=== PATIENT | female | born 1930 | race Asian ===

== ENCOUNTER 2017-05-07 15:49 | Emergency (ER) | payer MEDICARE, OTHER ==
[~2017-05-07] VITALS: Ht 149.9 cm; Wt 48.0 kg
[2017-05-07] MEDS ORDERED: LISI-660 PO (15:56)
[2017-05-07] MEDS ORDERED: SIMV-259 PO (15:56)
[2017-05-07] MEDS ORDERED: LEVO25TA9 PO (15:56)
[2017-05-07 18:35] VITALS: BP 185/86
== END 2017-05-07 19:30 | disposition home or self-care (01) ==
LOC: EMS 15:51
DX: S63.502A Unspecified sprain of left wrist, initial encounter (principal); S00.03XA Contusion of scalp, initial encounter; I10 Essential (primary) hypertension; E78.00 Pure hypercholesterolemia, unspecified; E03.9 Hypothyroidism, unspecified; W18.30XA Fall on same level, unspecified, initial encounter; Y93.89 Activity, other specified; Y92.89 Other specified places as the place of occurrence of the external cause; Y99.8 Other external cause status
CPT/HCPCS: 29280; 70450; 99284